=== PATIENT | female | born 1925 | race Caucasian/White ===

== ENCOUNTER → 2016-09-09 | Outpatient (CLI) | payer MEDICARE ==
[~2016-09-09] MED LIST: ADVAIR DIS1 PUFF/DO1 IH; ASPIR 8181 MG PO; CALCIUM600 MG PO; DELTASONE DPS20 MG PO; DULERA 200/58.8 GM IH; DUONEB DPS3 ML IH; LEVAQUIN DPS750 MG PO; LIPITOR DPS20 MG PO; LOPRESSOR DPS50 MG PO; PEPCID DPS20 MG PO; PREDNISONE20 MG PO; PRESERVISION A1 EACH PO; TEKTURNA HCT 11 EACH PO; TEKTURNA150 MG PO; THERAPEUTIC MUL1 TAB PO; VIBRAMYCIN-DPS100 M2 PO; VITAMIN D2000 UNIT PO
== END | disposition home or self-care (01) ==
LOC: RAD.S 10:52
DX: E04.2 Nontoxic multinodular goiter (principal)